=== PATIENT | male | born 1980 | race Caucasian/White ===

== ENCOUNTER → 2024-06-30 | Outpatient (CLI) | payer OTHER ==
[2024-07-03 11:13] LABS: HSV 1 SUBTYPE BY PCR Detected; HSV 2 SUBTYPE BY PCR Not Detected; HSV SUBTYPE SOURCE L EAR
== END ==
LOC: LAB SHORT 11:29 → LAB 11:29
PROVIDERS: Physician Assistant
DX: H66.92 Otitis media, unspecified, left ear (principal)
CPT/HCPCS: 87070; 87077; 87147; 87186; 87205; 87529